=== PATIENT | female | born 1975 | race Caucasian/White ===

== ENCOUNTER 2025-01-06 08:17 | Emergency (ER) | payer BC, SELFPAY ==
[2025-01-06 08:18] VITALS: BMI 29.2
[2025-01-06 08:33] VITALS: BP 120/61; PULSE 99; RESP 16; TEMP 37.1; O2SAT 99
--- NOTE | 2025-01-06 08:43 | XR_ITS ---
Examination: CT abdomen and pelvis without contrast. Coronal 3-D reconstructions. Sagittal 2-D reconstructions. Date and time of exam:January 07, 2020 5:10 AM Indications: Onset abdominal pain and constipation beginning 2 weeks ago CTDI: vol (mGy): 8.39 DLP: (mGycm): 472 Technique: Axial images of the abdomen have been obtained, 3 mm slice thickness Intravenous contrast material has not been administered. Low dose protocols were performed. One or more of the following dose reduction techniques were used; automated exposure control, adjustment of the mA and/or KV according to patient size, use of iterative reconstruction technique. Findings: Multiple liver cysts Possible contracted gallbladder No biliary tract dilatation Common hepatic common bile duct not enlarged Spleen is not enlarged No pancreatic or adrenal mass Tiny fat-containing umbilical hernia 1 mm upper pole nonobstructing left renal calculus, coronal image 84 Aorta normal size Abundant stool in the right and transverse colon No bowel obstruction Anteverted uterus Urinary bladder intact Impression: Benign liver cysts 1 mm upper pole nonobstructing left renal calculus, no hydronephrosis or ureteral calculi No CT findings of appendicitis bowel obstruction or diverticulitis Abundant stool in the right and transverse colon
--- NOTE | 2025-01-06 08:44 | PD.EDRME ---
Rapid Medical Screening Exam RME Arrival date/time: 01/06/25 08:17 49-year-old female presents to the emergency department today for complaint of abdominal pain and constipation for 2 weeks Chief Complaint: Abdominal Pain Vital signs: Vital Signs Temperature 98.7 F 01/06/25 08:33 Pulse Rate 99 01/06/25 08:33 Respiratory Rate 16 01/06/25 08:33 Blood Pressure 120/61 01/06/25 08:33 Pulse Oximetry (%) 99 01/06/25 08:33 Oxygen Delivery Method Room Air 01/06/25 08:33
[2025-01-06 09:09] LABS: Collection Type, Urine Clean Catch
[2025-01-06 09:22] LABS: Bilirubin,Urine Negative (Negative); Blood,Urine Negative (Negative); Clarity,Urine Turbid (Clear/Hazy); Color,Urine Yellow (Lt Yel-Yel); Culture Indicated,Urine Not Indicated; Glucose, Urine Negative (Negative); Ketones,Urine Negative (Negative); Leukocyte Esterase,Urine Negative (Negative); Nitrite,Urine Negative (Negative); Protein,Urine Trace (Neg - Trace); RBC,Urine 1 /hpf (0-3); Specific Gravity,Urine 1.025 (1.001-1.035); Squamous Epithelial Cell,Urine 10 /hpf (0-5); Urobilinogen,Urine Negative mg/dL (0.0-1.0); WBC,Urine 4 /hpf (0-5)
[2025-01-06 09:34] LABS: HCG Qualitative,Urine Negative
[2025-01-06 09:49] LABS: Basophils % (Auto) 0 % (0-2.5); Eosinophils # (Auto) 0.1 Thou/mm3 (0.0-0.5); Eosinophils % (Auto) 2 % (0-10); Hematocrit 42.9 % (36.0-46.0); Immature Granulocytes % (Auto) 0 % (0-0); Immature Granulocytes Auto 0.01 Thou/mm3 (0.00-0.00); Lymphocytes # (Auto) 1.6 Thou/mm3 (1.0-4.8); Lymphocytes % (Auto) 24 % (10-50); Mean Corpuscular Hemoglobin 30.8 pg (25.0-35.0); Mean Corpuscular Volume 88 fL (80-100); Monocytes # (Auto) 0.4 Thou/mm3 (0.0-0.8); Monocytes % (Auto) 6 % (0-12); Neutrophils # (Auto) 4.5 Thou/mm3 (1.8-7.7); Neutrophils % (Auto) 67 % (37-80); Nucleated Red Blood Cell % 0 /100 WBC (0); Platelet Count 269 Thou/mm3 (140-440); RDW Standard Deviation 40.9 fL (36.4-46.3); Red Blood Count 4.87 Miln/mm3 (4.00-5.20); White Blood Count 6.7 Thou/mm3 (3.6-11.0)
[2025-01-06 10:20] LABS: Alanine Aminotransferase < 7 U/L (10-49); Albumin, Serum 4.3 gm/dL (3.5-5.0); Albumin/Globulin Ratio 1.8 (1.2-2.2); Alkaline Phosphatase 72 U/L (46-116); Anion Gap 8 (7-16); Aspartate Amino Transferase 13 U/L (0-34); BUN/Creatinine Ratio 9 Ratio (12-20); Bilirubin,Total 0.4 mg/dL (0.3-1.2); Blood Urea Nitrogen 7 mg/dL (9-23); Calcium 9.2 mg/dL (8.3-10.6); Calcium (Corrected) 9.2 mg/dL (8.5-10.1); Carbon Dioxide 28.5 mMol/L (20.0-31.0); Chloride 104 mMol/L (98-107); Creatinine (Component) 0.8 mg/dL (0.6-1.3); Estimated Creatinine Clearance 71.7 mL/min (>60); Globulin 2.4 gm/dL (2.3-3.5); Glucose 80 mg/dL (74-106); Lipase 47 U/L (12-53); Osmolality,Calculated 276 (275-295); Potassium 4.3 mMol/L (3.4-5.1); Sodium 140 mMol/L (136-145); Total Protein 6.7 gm/dL (5.7-8.2); eGFR > 60 See Note
--- NOTE | 2025-01-06 12:07 | PC.NURSE ---
Had BM after enema.
--- NOTE | 2025-03-23 07:17 | EDNOTE_ITS ---
<Statement entered by Dayanara Salcedo MD - 03/24/25 21:04> As co-signing physician, I was present and available for consult prn. I concur with the plan and care as documented by the midlevel provider. ED Abdominal Pain RME/HPI General Chief Complaint: Abdominal Pain Stated complaint: NO BM X 14DAYS WITH ABD CRAMPING, NAUSEA AND VOMIT Time seen by provider: 01/06/25 11:25 Arrival date/time: 01/06/25 08:17 49-year-old female presents to the emergency department today for complaint of abdominal pain and constipation for 2 weeks Limitations: no limitations RME / HPI RME / HPI narrative: 01/06/25 08:17 49-year-old female presents to the emergency department today for complaint of abdominal pain and constipation for 2 weeks Related Data Previous Rx's ?Medication ?Instructions ?Recorded glycerin (adult) 1 supp PA QDAY PRN constipat ion 09/24/21 #12 ea Allergies Allergy/AdvReac Type Severity Reaction Status Date / Time Penicillins Allergy Unknown Verified 01/06/25 08:20 Tetracyclines Allergy Unknown Verified 01/06/25 08:20 Review of Systems Review of Systems Systems Reviewed: All systems reviewed, normal except as documented Constitutional Constitutional: Reports system reviewed and no additional complaints, except as documented, Denies fever(s) and Denies headache(s) Eyes Eyes: Reports system reviewed and no additional complaints, except as documented and Denies blurry vision ENT Ears, Nose, Mouth, and Throat: Reports system reviewed and no additional complaints, except as documented, Denies headache(s), Denies nasal congestion and Denies nasal discharge Cardiovascular Cardiovascular: Reports system reviewed and no additional complaints, except as documented, Denies chest pain and Denies dyspnea Respiratory Respiratory: Reports system reviewed and no additional complaints, except as documented, Denies chest congestion, Denies cough and Denies dyspnea Gastrointestinal Gastrointestinal: Reports system reviewed and no additional complaints, except as documented, Reports abdominal pain, Reports constipation, Reports cramping, Denies diarrhea, Denies hematochezia, Denies loose stools, Denies melena and Denies nausea Integumentary/Breasts Skin/Breast: Reports system reviewed and no additional complaints, except as documented and Denies rash Neurologic Neurologic: Reports system reviewed and no additional complaints, except as documented, Reports as per HPI and Denies headache(s) Past Medical History Social History SMOKING STATUS: Never smoker ED Exam General Limitations: Present no limitations General appearance: Present alert and in no apparent distress Head Head exam: Present atraumatic and normal inspection Eye Eye exam: Present normal appearance, PERRL and EOMI; Absent conjunctival injection ENT ENT exam: Present normal exam, normal oropharynx and mucous membranes moist Neck Neck exam: Present normal inspection, full ROM and trachea midline Chest Chest inspection: Present normal inspection and symmetric chest wall rise Respiratory Respiratory exam: Present normal lung sounds bilaterally Cardiovascular Cardiovascular exam: Present regular rate, normal rhythm and normal heart sounds Abdominal Exam Abdominal exam: Present soft, distention, tenderness and normal bowel sounds; Absent guarding, rebound, rigidity, Grace's sign or tenderness at McBurney's Point Abdominal tenderness: Absent RUQ or RLQ Extremities Exam Extremities exam: Present normal inspection and full ROM Back Exam Back exam: Present normal inspection and full ROM Neurological Exam Neurological exam: Present alert, oriented X3 and CN II-XII intact Psychiatric Psychiatric exam: Present normal affect and normal mood Skin Skin exam: Present warm, dry, intact and normal color Course Quality Measures none Orders Category Date Time Status Enema Administration NOW Care 01/06/25 11:[address] abdomen pelvis wo con Stat Exams 01/06/25 08:43 Completed CBC Stat Lab 01/06/25 09:25 Completed Comprehensive Metabolic Panel Stat Lab 01/06/25 09:25 Completed HCG Qualitative,Urine Stat Lab 01/06/25 08:49 Completed Lipase Stat Lab 01/06/25 09:25 Completed UA, C/S IF [Urinalysis, C/S if Indicated] Stat Lab 01/06/25 08:49 Completed Vital Signs Vital signs: Vital Signs Temperature 98.7 F 01/06/25 08:33 Pulse Rate 99 01/06/25 08:33 Respiratory Rate 16 01/06/25 08:33 Blood Pressure 120/61 01/06/25 08:33 Pulse Oximetry (%) 99 01/06/25 08:33 Oxygen Delivery Method Room Air 01/06/25 08:33 O2 saturation 99% room air within normal limits Abdominal Pain MDM MDM Narrative MDM Narrative:: 49-year-old female presents to the emergency department today for complaint of abdominal pain and constipation for 2 weeks Lab work and imaging obtained no acute emergent findings noted Patient given an enema here discharge home with glycerin suppository Explained to the patient she is to follow-up with her PCP and ordered referral to GI specialist for further evaluation and colonoscopy Patient discharged home in no distress to follow-up with primary care doctor in the next 24 to 48 hours and for any worsening symptoms to return to the ER immediately Patient data External records reviewed:: [facility] previous records Clinical information provided by:: patient Social determinants that could affect healthcare access:: none Patient has the following chronic illnesses:: See history How is presenting disease/condition affected by chronic disease/condition?: uneffected by Evaluation data The following diagnostics were reviewed and interpreted by me:: lab results and radiology exam(s) Lab and/or radiology exams considered but not ordered:: Labs and radiology obtained Interpretation Summary: Reviewed by me Medications / Prescriptions Medications or Prescriptions considered but not ordered:: Given Medication administrations:: Given Consultations Consultation(s) initiated? (list below): No Diagnosis Differential diagnosis abdominal pain: abdominal pain, acute appendicitis, pancreatitis and small bowel obstruction Most likely diagnosis given after review of the tests above:: Constipation Admission Indicated Admission indicated?: not indicated Admission Request Was there a request for admission?: No Disposition Plan Disposition Plan: Discharge Discharge Attestation Discharge Attestation: The patient and all family members were given an opportunity to ask questions and understood the discharge instructions. Discharge instructions specifically effects, indications for sooner follow up or return to the emergency department, and the expected course of current diagnosis. Patient condition: Stable Discharge Plan Plan Patient Disposition: HOME (Self Care) Prescriptions/Referrals Prescriptions/Med Rec: No Action glycerin (adult) Suppository 1 supp PA QDAY PRN (Reason: constipation) Qty: 12 0RF Referrals: Fausto Santiago MD [Primary Care Provider] - In 1 week Problem List Clinical Impression: Constipation Patient/Caregiver Discharge Instructions Education Materials: How the Colon Works Additional Instructions: Please follow up with your primary care doctor in the next 24-48hrs for any worsening symptoms return here immediately Print Language: Japanese Stand Alone Forms: Basia Award Info., Work/School Release, Patient Portal Info Letter PA/PAUL Supervising Physician PA/PAUL Supervising Physician: Dr. Salcedo
== END 2025-01-06 12:20 | disposition home or self-care (01) ==
PROVIDERS: Nurse Practitioner Primary Care; Emergency Provider Emergency Medicine; PCP Internal Medicine
DX: K59.00 Constipation, unspecified (principal)
CPT/HCPCS: 36415; 74176; 80053; 81001; 81025; 83690; 85025; 99284